=== PATIENT | male | born 1960 | race Caucasian/White ===

== ENCOUNTER → 2017-04-12 | Outpatient (CLI) | payer BC ==
[2017-04-12 13:55] LABS: LYME DISEASE AB IGG NEG (NEG)
[2017-04-12 13:57] LABS: LYME DISEASE AB IGM NEG (NEG)
== END | disposition home or self-care (01) ==
LOC: C.LAB1850 10:39
PROVIDERS: ATTEND Family Medicine
DX: M17.12 Unilateral primary osteoarthritis, left knee (principal)

== ENCOUNTER → 2017-04-12 | Outpatient (CLI) | payer BC ==
--- NOTE | 2017-04-12 09:49 | DIAGNOSTIC IMAGING REPORT ---
Left knee including bilateral standing AP views CLINICAL HISTORY: LEFT KNEE PAIN COMPARISON: None. DISCUSSION: There is moderate bilateral medial joint compartment narrowing. On the left there are no acute fractures. There are no erosive or destructive changes. There is a tiny dorsal patellar spur. IMPRESSION: 1. No acute fractures 2. Moderate medial joint compartment narrowing Electronically signed by: Roberto Carlos Almanzar M.D. 04/12/2017 9:47 AM Dictated Date/Time: 04/12/2017 9:46 AM
== END | disposition home or self-care (01) ==
LOC: C.RDSM 10:52
PROVIDERS: ATTEND Family Medicine
DX: M25.562 Pain in left knee (principal)